=== PATIENT | female | born 1985 | race Caucasian/White ===

== ENCOUNTER 2023-06-24 18:56 | Emergency (ER) | payer BC ==
[2023-06-24 19:32] LABS: BASOPHILS PERCENT AUTO 0.4 % (0.0-1.0); EOSINOPHILS ABSOLUTE AUTO 0.1 K/mm3 (0.0-0.4); EOSINOPHILS PERCENT AUTO 2.5 % (0.0-6.0); HEMATOCRIT 38.2 % (37.0-47.0); HEMOGLOBIN 12.3 gm/dl (12.0-16.0); IMMATURE GRAN ABSOLUTE AUTO 0.03 K/mm3 (0.00-0.05); IMMATURE GRAN PERCENT AUTO 0.5 % (0.0-0.4); LYMPHOCYTES ABSOLUTE AUTO 1.4 K/mm3 (1.0-4.8); LYMPHOCYTES PERCENT AUTO 24.1 % (24.0-44.0); MEAN CORPUSCULAR HEMOGLOBIN 29.1 pg (28.0-32.0); MEAN CORPUSCULAR HGB CONC 32.2 g/dl (32.0-36.0); MEAN CORPUSCULAR VOLUME 90.3 fl (83.0-99.0); MEAN PLATELET VOLUME 8.9 fl (9.4-12.3); MONOCYTES ABSOLUTE AUTO 0.5 K/mm3 (0.0-0.8); MONOCYTES PERCENT AUTO 8.6 % (0.0-8.0); NEUTROPHILS ABSOLUTE AUTO 3.6 K/mm3 (1.8-7.7); NEUTROPHILS PERCENT AUTO 63.9 % (41.0-71.0); PLATELET COUNT,PLT 231 K/mm3 (150-400); RED BLOOD CELL COUNT 4.23 M/mm3 (4.10-5.30); WHITE BLOOD CELL COUNT,WBC 5.61 K/mm3 (3.9-11.3)
[2023-06-24 19:58] LABS: ALBUMIN 3.7 g/dl (3.4-5.0); ANION GAP 13.9 (5-15); BILIRUBIN TOTAL 0.3 mg/dL (0.2-1.0); BUN/CREATININE RATIO 8.8 (14-18); CREATININE 0.8 mg/dL (0.55-1.02); EST CRCL DRUG DOSING (CG) 90.13 mL/min; POTASSIUM,K 3.9 mEq/L (3.5-5.1); PROTEIN TOTAL,TP 7.3 g/dl (6.4-8.2)
[2023-06-24 19:59] LABS: MAGNESIUM 1.7 mg/dL (1.8-2.4); TROPONIN I HIGH SENSITIVITY < 4 pg/mL (<=51)
[2023-06-24] MEDS: Iopamidol 755 Mg/ML 100 ML Bottle IVPUSH ONE (20:04)
[2023-06-24 20:05] LABS: ETHANOL BLOOD MEDICAL 0.01 gm% (0.00)
[2023-06-24] MEDS ORDERED: Sodium Chloride 0.9% 100 ML IV SCH (20:15)
[2023-06-24] MEDS: Sodium Chloride 0.9% 1,000 ML IV SCH (20:36)
[2023-06-24] MEDS: Sodium Chloride 0.9% 10 ML Syringe FLUSH PRN (20:39)
[2023-06-24 21:09] LABS: APPEARANCE,URINE CLEAR (Clear); BILIRUBIN,URINE NEGATIVE (Negative); COLOR,URINE LIGHT YELLOW (Yellow); GLUCOSE,URINE NEGATIVE (Negative); KETONES,URINE NEGATIVE (Negative); LEUKOCYTE ESTERASE,URINE NEGATIVE (Negative); NITRITE,URINE NEGATIVE (Negative); OCCULT BLOOD,URINE NEGATIVE (Negative); PH,URINE 6.5 (5.0-8.0); PROTEIN,URINE NEGATIVE (Negative); UROBILINOGEN,URINE 0.2 (0.2-1.0)
[2023-06-24] MEDS: Magnesium Oxide 400 MG Tab PO ONE (21:19)
[2023-06-24] MEDS: Amoxicillin 500 MG Cap PO ONE (21:21)
[2023-06-24] MEDS: Doxycycline Monohydrate 100 MG Cap PO ONE (21:21)
== END 2023-06-24 21:50 | disposition home or self-care (01) ==
LOC: JD.ED 18:56
DX: R55 Syncope and collapse (principal); J18.9 Pneumonia, unspecified organism; E83.42 Hypomagnesemia; Z79.899 Other long term (current) drug therapy; Z88.2 Allergy status to sulfonamides; Z88.8 Allergy status to other drugs, medicaments and biological substances
CPT/HCPCS: 36415; 70450; 71275; 80053; 80307; 81003; 83735; 84484; 84703; 85025; 85379; 93005; 96360; 99284; A9270; J3490; J7030; Q9967